=== PATIENT | female | born 1985 | race Caucasian/White ===

== ENCOUNTER 2016-07-05 10:17 | Emergency (ER) | payer BC ==
[~2016-07-05] VITALS: Ht 157.5 cm; Wt 55.2 kg
[2016-07-05 10:20] VITALS: TEMP 36.8; Ht 157.5 cm; Wt 55.2 kg
[2016-07-05] MEDS ORDERED: CYCLOBENZAPRINE HCL 5 MG TAB PO STA (10:49)
[2016-07-05] MEDS ORDERED: KETOROLAC TROMETHAMINE 10 MG TAB PO STA (10:49)
[2016-07-05] MEDS ORDERED: CYCLOBENZAPRINE HCL 10 MG TAB ONE (11:07)
[2016-07-05] MEDS ORDERED: BUPR200T2 PO (11:51)
[2016-07-05] MEDS ORDERED: QUET1TAB7 PO (11:51)
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
[2016-07-05 12:26] VITALS: BP 104/61; PULSE 61; O2SAT 100
[2016-07-05] MEDS ORDERED: TRAM-10 PO (12:32)
[2016-07-05] MEDS ORDERED: CYCL10TA6 PO (12:32)
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
== END 2016-07-05 12:47 | disposition home or self-care (01) ==
LOC: C.EDB 10:20 → C.EDA 12:47
DX: M62.838 Other muscle spasm (principal); M41.9 Scoliosis, unspecified; Z79.899 Other long term (current) drug therapy